=== PATIENT | male | born 1975 | race Caucasian/White ===

== ENCOUNTER → 2022-04-27 | Day surgery (SDC) | payer OTHER ==
[~2022-04-27] VITALS: Ht 177.8 cm; Wt 77.1 kg
[~2022-04-27] MED LIST: AMOXICILLIN500 M1 PO; DIPHENHYDRAMINE25 MG PO; MOTRIN600 MG PO; PHENERGAN25 M1 PO
[2022-04-27 07:30] LABS: BASOPHIL 0.3 % (0-2); EOSINOPHIL 1.5 % (0-5); HCT 39.7 % (42.0-52.0); HGB 13.7 g/dl (13.2-18.0); LYMPHOCYTE 20.4 % (15-48); MCH 31.3 pg (25.0-31.0); MCHC 34.5 g/dL (32.0-36.0); MCV 90.6 fL (78.0-100.0); MPV 9.7 fL (6.0-9.5); NEUTROPHIL 71.5 % (41-80); NRBC 0; PLT 310 K/uL (150-400); RBC 4.38 M/uL (4.70-6.00); RDW 12.6 % (11.5-14.0); WBC 8.6 K/uL (4.0-10.5)
== END | disposition home or self-care (01) ==
LOC: FAS 06:28
PROVIDERS: Oral & Maxillofacial Surgery
DX: K02.9 Dental caries, unspecified (principal); K04.7 Periapical abscess without sinus; I10 Essential (primary) hypertension; F41.9 Anxiety disorder, unspecified; F17.210 Nicotine dependence, cigarettes, uncomplicated; Z79.899 Other long term (current) drug therapy
CPT/HCPCS: D7140; D7210; D7310; 36415; 71045; 85025; 93005; J1100; J1885; J2250; J2405; J2704; J3010